=== PATIENT | female | born 1960 | race Caucasian/White ===

== ENCOUNTER → 2017-02-08 | Day surgery (SDC) | payer OTHER ==
--- NOTE | 2017-02-07 08:53 | MH ---
cc: MANUEL MEREDITH M.D. DATE OF ADMISSION: 02/08/2017 ADMITTING DIAGNOSIS INDICATIONS A 56-year-old female with previous ear tubes, have been retained. She has had tube otorrhea and it has been symptomatic. She is to undergo bilateral PE tube removal under general anesthesia and bilateral repair of subsequent tympanic membrane perforations. PAST MEDICAL HISTORY DRUG ALLERGIES ERYTHROMYCIN with rash. CURRENT MEDICATIONS 1. Flonase. 2. Synthroid. 3. Tramadol. 4. Acetaminophen. PHYSICAL EXAMINATION GENERAL: A well-developed, well-nourished female in no apparent distress. HEENT: Normocephalic, atraumatic. Extraocular motions intact. The external ear canals are clear. T-tubes were in position bilaterally. There is granulation adjacent to the right T-tube. The left shows currently no granulation. The lips, oral mucosa and oropharynx show no lesion. NECK: No masses. CHEST: Clear to auscultation. HEART: Regular rate. ABDOMEN: Soft. EXTREMITIES: No lesion. NEUROLOGIC: Exam nonfocal. ASSESSMENT This is a 56-year-old female with retained PE tube. PLAN She is to undergo removal bilaterally. She will undergo subsequent repair of the tympanic membrane perforations. The risks and benefits were discussed with the patient. The risks include but are not limited to those of anesthesia, bleeding, unfavorable scarring, persistent TM perforation, cholesteatoma, hearing loss, otorrhea and infection. The patient states she understands and accepts the risks of the procedure. MD JOHN Mohamud/MANDO /7:45 AM /8:49 AM
[~2017-02-08] VITALS: Ht 162.6 cm; Wt 104.1 kg
[~2017-02-08] MED LIST: ACETAMINOPHEN/HYDROcodone 325 MG/5 MG TAB PO PRN; BACITRACIN TOP OINT 15 GM TUBE ONE; DO NOT ADM ANY ANTICOAGULANT DRUGS XX PRN; EXCETAB2 PO; GELATIN 12 MM/7 MM FOAM ONE; INSULIN HUMAN REGULAR 1,000 UNITS/10 ML VIAL SQ PRN; LACTATED RINGER'S 1000 ML IV SCH; LEVO.075 PO; LIDOCAINE 1%/EPINEPHrine 1:100,000 SOLN 20 ML VIAL ONE; METOPROLOL TARTRATE 25 MG TAB PO PRN; MORPHINE SULFATE 4 MG/ML INJ IV PUSH PRN; OFLOXACIN 0.3% OPTH SOLN 5 ML BTL EACH EAR SCH; OFLOXACIN 0.3% OPTH SOLN 5 ML BTL ONE; ONDANSETRON HCL 4 MG/2 ML VIAL IV PUSH ONE; ONDANSETRON HCL 4 MG/2 ML VIAL IV PUSH PRN; PROPOFOL 200 MG/20 ML AMP IV ONE; SODIUM CHLORID 0.9% 500 ML IV SCH; fentaNYL CITRATE 250 MCG/5 ML AMP ONE
[2017-02-08 07:46] VITALS: BP 150/73; PULSE 79; RESP 18; TEMP 99.1; O2SAT 97
[2017-02-08 08:27] LABS: AUTOMATED NEUTROPHIL # 5.9 TH/MM3 (1.8-7.7); BASOPHIL # 0.1 TH/MM3 (0-0.2); BASOPHIL % 0.6 % (0.0-2.0); EOSINOPHIL # 0.3 TH/MM3 (0-0.4); EOSINOPHIL % 2.8 % (0.0-4.0); HEMATOCRIT 36.3 % (35.0-46.0); HEMO FLAGS DIFF FINAL; LYMPH % 27.7 % (9.0-44.0); LYMPHOCYTE # 2.6 TH/MM3 (1.0-4.8); MEAN CELL VOLUME 78.4 FL (80.0-100.0); MEAN CORPUSCULAR HEMOGLOBIN 26.5 PG (27.0-34.0); MEAN CORPUSCULAR HGB CONC 33.8 % (32.0-36.0); MONO % 6.5 % (0.0-8.0); NEUT % 62.4 % (16.0-70.0); PLATELET COUNT 343 TH/MM3 (150-450); RED BLOOD COUNT 4.63 MIL/MM3 (4.00-5.30); RED CELL DISTRIBUTION WIDTH 15.5 % (11.6-17.2); WHITE BLOOD COUNT 9.5 TH/MM3 (4.0-11.0)
--- NOTE | 2017-02-08 09:14 | EKG ---
Date Performed: 02/08/2017 Time Performed: 07:42:01 PTAGE: 56 years EKG: Sinus rhythm NORMAL ECG NO PREVIOUS TRACING DOCTOR: Reji Saldaña Interpretating Date/Time 02/08/2017 09:12:58
--- NOTE | 2017-02-08 09:16 | MP ---
cc: MANUEL MEREDITH M.D. DATE OF SURGERY 02/08/2017 INDICATIONS A 56-year-old female with history of previous myringotomy and tubes. She has retained PE tubes, has had problems with tube otorrhea and granulation tissue. She is to undergo bilateral tube removal, then will undergo repair of the subsequent bilateral TM perforations. PREOPERATIVE DIAGNOSES Chronic otitis media. Retained PE tubes. POSTOPERATIVE DIAGNOSES Chronic otitis media. Retained PE tubes. PROCEDURE Bilateral removal of pressure equalization tubes under general anesthesia, bilateral repair of tympanic membranes under general anesthesia. SUMMARY The patient was brought to the operating room and placed in supine position, successfully placed under general anesthesia, prepared in the usual fashion for this procedure. The right ear was examined under the microscope. The old tube was removed. There was an area of granulation adjacent. There was a perforation then noted. The area of the perforation was freshened using instrumentation and then a paper patch was left in position to repair the tympanic membrane and topical drops were applied. On the left side the ear was examined under the microscope. A previous PE tube was removed from the tympanic membrane. Subsequent perforation was identified and then using instrumentation the edges were freshened and then a small flap was rolled into position. A paper patch was used for repair and drops were applied. She tolerated the procedure well, was awakened and taken to Recovery in stable condition. MD JOHN Mohamud/MANDO /9:00 AM /9:07 AM
[2017-02-08 11:45] VITALS: BP 147/76; PULSE 71; RESP 18; TEMP 98.7; O2SAT 97
== END | disposition home or self-care (01) ==
LOC: HSDC 07:00
PROVIDERS: ATTEND Specialist
DX: H92.13 Otorrhea, bilateral (principal); Z96.22 Myringotomy tube(s) status; H66.93 Otitis media, unspecified, bilateral; H72.93 Unspecified perforation of tympanic membrane, bilateral; Z01.810 Encounter for preprocedural cardiovascular examination
CPT/HCPCS: 00120; 69610; 85025; 93005; J2405; J3010